=== PATIENT | female | born 1980 | race Caucasian/White ===

== ENCOUNTER 2020-04-18 08:52 | Outpatient (REF) | payer BC, SELFPAY ==
[2020-05-11 09:16] LABS: CT PCR NOT DETECTED (Not Detect.); NG PCR NOT DETECTED (Not Detect.)
== END 2020-04-18 08:53 | disposition home or self-care (01) ==
LOC: HO.LAB 08:52
PROVIDERS: PCP Internal Medicine; Referring Provider Internal Medicine; Visit Provider Advanced Practice Midwife
DX: Z01.419 Encounter for gynecological examination (general) (routine) without abnormal findings (principal); Z20.2 Contact with and (suspected) exposure to infections with a predominantly sexual mode of transmission; N84.1 Polyp of cervix uteri
CPT/HCPCS: 87491; 87591

== ENCOUNTER 2020-06-18 11:53 | Outpatient (REF) | payer BC, SELFPAY ==
--- NOTE | ~2020-06-18 | US_ITS ---
EXAMINATION: US VENOUS ULTRASOUND WITH DOPPLER LOWER EXTREMITY, LEFT CLINICAL INFORMATION: Left leg swelling and phlebitis COMPARISON: None TECHNIQUE: Ultrasound of the deep veins is performed from the hip to the calf with compression sonography and color and pulse Doppler assessment. Spectral analysis with color-flow imaging is performed. FINDINGS: There is normal venous compression and respiratory variation and augmented flow of the deep veins of the left lower extremity. The visualized common femoral vein, superficial femoral vein, profunda femoral vein, popliteal vein, and the trifurcation region shows no evidence of deep venous thrombosis. There is evidence of superficial thrombophlebitis in the superior medial calf. There is edema of the soft tissues of the calf. The contralateral right common femoral vein is patent. There is no significant popliteal fossa cyst. US/US venous duplex LE LT IMPRESSION: No DVT demonstrated in the left lower extremity. Superficial thrombophlebitis in the calf.
[2020-06-18 13:41] LABS: MANUAL DIFF FLAG NO
[2020-06-18 13:44] LABS: Basophils Percent Auto 0.2 % (0-2); Eosinophils Absolute Auto 0.1 X10*3/uL (0.0-0.4); Eosinophils Percent Auto 1.8 % (0-4); Hematocrit 38.8 % (37-47); Hemoglobin 12.7 g/dl (12.0-16.0); Imm Gran Abs Auto 0.01 X10*3/uL (0.00-0.03); Imm Gran Pct Auto 0.2 % (0.0-0.4); Lymphocytes Absolute Auto 1.4 X10*3/uL (1.2-4.9); Lymphocytes Percent Auto 27.4 % (20-40); Mean Corpuscular HGB Conc 32.7 g/dl (31.0-35.0); Mean Corpuscular Hemoglobin 29.5 pg (27.0-33.0); Mean Corpuscular Volume 90.2 fL (80-98); Mean Platelet Volume 11.4 fL (9.4-12.3); Monocytes Absolute Auto 0.4 X10*3/uL (0.1-1.2); Monocytes Percent Auto 6.9 % (2-11); Neutrophils Absolute Auto 3.2 X10*3/uL (2.0-8.3); Neutrophils Percent Auto 63.5 % (45-73); Platelet Count 219 X10*3/uL (160-400); Red Cell Distribution Width 11.9 % (11.0-16.0)
[2020-06-18 14:09] LABS: Anion Gap 11 (12-20); Blood Urea Nitrogen 13 mg/dL (9-16); C Reactive Protein 0.76 mg/dL (< or = 0.50); Calcium 8.9 mg/dL (8.4-10.2); Carbon Dioxide 26 mmol/L (22-29); Chloride 104 mmol/L (96-108); Cholesterol 169 mg/dL; Estimated Glomerular Filt Rate > 60; Glucose Random 96 mg/dL (60-115); Sodium 137 mmol/L (135-145)
== END 2020-06-18 11:54 | disposition home or self-care (01) ==
LOC: HO.US 11:53
PROVIDERS: PCP Internal Medicine; Visit Provider Internal Medicine
DX: Z00.00 Encounter for general adult medical examination without abnormal findings (principal); I80.3 Phlebitis and thrombophlebitis of lower extremities, unspecified
CPT/HCPCS: 36415; 80048; 82465; 85025; 86140; 93971

== ENCOUNTER 2021-05-20 09:48 | Outpatient (REF) | payer BC, SELFPAY ==
[2021-05-22 13:37] LABS: HPV mRNA E6/E7 rflx Not Detected (Not Detected)
== END 2021-05-20 09:49 | disposition home or self-care (01) ==
LOC: HO.LAB 09:48
PROVIDERS: PCP Internal Medicine; Visit Provider Obstetrics & Gynecology
DX: Z01.419 Encounter for gynecological examination (general) (routine) without abnormal findings (principal); Z11.51 Encounter for screening for human papillomavirus (HPV)
CPT/HCPCS: 87624; 88142

== ENCOUNTER 2021-06-09 10:49 | Outpatient (REF) | payer BC, SELFPAY | END 2021-06-09 10:50 | disposition home or self-care (01) | LOC: HO.LAB 10:49 | PROVIDERS: PCP Internal Medicine; Visit Provider Obstetrics & Gynecology | DX: R87.610 Atypical squamous cells of undetermined significance on cytologic smear of cervix (ASC-US) (principal) | CPT/HCPCS: 57454; 88305 ==

== ENCOUNTER → 2021-06-23 15:13 | Outpatient (BNVA) | payer BC, SELFPAY | PROVIDERS: PCP Internal Medicine; Visit Provider Obstetrics & Gynecology ==

== ENCOUNTER 2021-06-24 15:08 | Outpatient (REF) | payer BC, SELFPAY ==
--- NOTE | ~2021-06-24 | MM_ITS ---
EXAMINATION: MM SCREENING DIGITAL BREAST TOMOSYNTHESIS, BILATERAL CLINICAL INFORMATION: Screening. Asymptomatic. Age 41. No prior breast imaging. No known family history breast cancer. The lifetime risk of breast cancer based on the Tyrer-Cuzick Model is 12%. COMPARISON: None (current study represents initial baseline exam). TECHNIQUE: Digital breast tomosynthesis is performed in both the craniocaudal and mediolateral oblique views along with computer-aided detection (CAD). Synthesized 2D images are generated from the tomosynthesis. FINDINGS: There are scattered areas of fibroglandular density (ACR BI-RADS breast composition Category b). There are no significant masses, abnormal calcifications, or other abnormalities. No architectural abnormality. The skin contours are smooth. MM/MM tomosynthesis screening BI IMPRESSION: No mammographic evidence of malignancy. ASSESSMENT: BI-RADS 1: Negative RECOMMENDATION: Routine annual mammography screening. This patient's information was entered into a reminder system with a target due date for their next mammogram.
== END 2021-06-24 15:09 | disposition home or self-care (01) ==
LOC: HO.MAMMO 15:08
PROVIDERS: PCP Internal Medicine; Visit Provider Obstetrics & Gynecology
DX: Z12.31 Encounter for screening mammogram for malignant neoplasm of breast (principal)
CPT/HCPCS: 77063; 77067

== ENCOUNTER 2022-05-24 09:18 | Outpatient (REF) | payer OTHER, SELFPAY ==
[2022-05-28 05:13] LABS: HPV mRNA E6/E7 rflx Not Detected (Not Detected)
== END 2022-05-24 09:19 | disposition home or self-care (01) ==
LOC: HO.LNP 09:18
PROVIDERS: PCP Internal Medicine; Visit Provider Obstetrics & Gynecology
DX: Z01.419 Encounter for gynecological examination (general) (routine) without abnormal findings (principal); Z11.51 Encounter for screening for human papillomavirus (HPV)
CPT/HCPCS: 87624; 88142

== ENCOUNTER 2022-06-28 15:19 | Outpatient (REF) | payer OTHER, SELFPAY ==
--- NOTE | ~2022-06-28 | MM_ITS ---
EXAMINATION: MM SCREENING DIGITAL BREAST TOMOSYNTHESIS, BILATERAL CLINICAL INFORMATION: Screening. Asymptomatic. The lifetime risk of breast cancer based on the Tyrer-Cuzick Model is 12.1%. COMPARISON: Mammography: June 24, 2021 TECHNIQUE: Digital breast tomosynthesis is performed in both the craniocaudal and mediolateral oblique views along with computer-aided detection (CAD). Synthesized 2D images are generated from the tomosynthesis. FINDINGS: The breasts are heterogeneously dense, which may obscure small masses (ACR BI-RADS breast composition Category c). There are no significant masses, abnormal calcifications, or other abnormalities. MM/MM tomosynthesis screening BI IMPRESSION: No significant changes ASSESSMENT: BI-RADS 1: Negative RECOMMENDATION: Routine annual mammography screening. This patient's information was entered into a reminder system with a target due date for their next mammogram.
== END 2022-06-28 15:20 | disposition home or self-care (01) ==
LOC: HO.MAMMO 15:19
PROVIDERS: PCP Internal Medicine; Visit Provider Obstetrics & Gynecology
DX: Z12.31 Encounter for screening mammogram for malignant neoplasm of breast (principal)
CPT/HCPCS: 77063; 77067

== ENCOUNTER 2023-01-21 12:08 | Outpatient (REF) | payer OTHER, SELFPAY ==
[2023-01-21 13:21] LABS: MANUAL DIFF FLAG NO
[2023-01-21 13:33] LABS: Basophils Percent Auto 0.4 % (0-2); Eosinophils Absolute Auto 0.2 X10*3/uL (0.0-0.4); Eosinophils Percent Auto 3.7 % (0-4); Hematocrit 38.9 % (37.0-47.0); Hemoglobin 12.8 g/dl (12.0-16.0); Imm Gran Abs Auto 0.01 X10*3/uL (0.00-0.03); Imm Gran Pct Auto 0.2 % (0.0-0.4); Lymphocytes Absolute Auto 1.2 X10*3/uL (1.2-4.9); Lymphocytes Percent Auto 26.9 % (20-40); Mean Corpuscular HGB Conc 32.9 g/dl (31.0-35.0); Mean Corpuscular Hemoglobin 30.5 pg (27.0-33.0); Mean Corpuscular Volume 92.8 fL (80.0-98.0); Monocytes Absolute Auto 0.4 X10*3/uL (0.1-1.2); Monocytes Percent Auto 9.2 % (2-11); Neutrophils Absolute Auto 2.7 x10*3/uL (2.0-8.3); Neutrophils Percent Auto 59.6 % (45-73); Platelet Count 179 X10*3/uL (160-400); Red Blood Count 4.19 X10*6/uL (4.20-5.50); Red Cell Distribution Width 11.9 % (11.0-16.0); White Blood Count 4.6 X10*3/uL (4.8-10.8)
[2023-01-21 14:15] LABS: Anion Gap 13 (12-20); Blood Urea Nitrogen 11 mg/dL (9-16); Calcium 8.8 mg/dL (8.4-10.2); Carbon Dioxide 22 mmol/L (22-29); Chloride 108 mmol/L (96-108); Cholesterol 175 mg/dL (<200); Estimated Glomerular Filt Rate > 60; Glucose Random 85 mg/dL (60-115); Potassium 4.1 mmol/L (3.3-5.1); Sodium 139 mmol/L (135-145)
== END 2023-01-21 12:09 | disposition home or self-care (01) ==
LOC: HO.10HDL 12:08
PROVIDERS: Visit Provider Internal Medicine
DX: Z00.00 Encounter for general adult medical examination without abnormal findings (principal); J06.9 Acute upper respiratory infection, unspecified; I83.90 Asymptomatic varicose veins of unspecified lower extremity
CPT/HCPCS: 36415; 80048; 82465; 85025

== ENCOUNTER 2023-06-29 15:33 | Outpatient (REF) | payer OTHER, SELFPAY | END 2023-06-29 15:34 | disposition home or self-care (01) | LOC: HO.MAMMO 15:33 | PROVIDERS: PCP Internal Medicine; Visit Provider Internal Medicine | DX: Z12.31 Encounter for screening mammogram for malignant neoplasm of breast (principal) | CPT/HCPCS: 77063; 77067 ==

== ENCOUNTER → 2023-06-29 15:45 | Outpatient (BNV) | payer OTHER, SELFPAY | PROVIDERS: PCP Internal Medicine; Visit Provider Radiology Diagnostic Radiology | DX: Z12.31 Encounter for screening mammogram for malignant neoplasm of breast (principal) | CPT/HCPCS: 77063; 77067 ==

== ENCOUNTER 2023-07-19 14:50 | Outpatient (AMB) | payer OTHER, SELFPAY ==
--- NOTE | 2023-07-19 14:54 | MHC.OFFVIS ---
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 No complaints. The patient is interested in discussing different options of control Last Pap/HPV was negative in 05/24 Last Mammogram was BI-RADS 1 in 06/25 [facility] Medical History Cervical cancer screening ASCUS of cervix with negative high risk HPV Anxiety Asthma Surgical History History of repair of ACL Social History Household Members: Spouse and Children Housing: House Alcohol intake: current Alcohol intake frequency: a few times a month Patient Tobacco Use Status: Never used Tobacco service: No Current occupational status: employed Current occupation: manager printing Sexual orientation: Straight/Heterosexual Gender identity: Female Female Reproductive History Menstrual Age of Menarche: 12 Date of last menstrual period: 07/11/23 control method: pills Total pregnancies: 3 Full term: 2 Number of Living Children: 2 Ab induced: 1 Date of last pap smear: 05/24/22 History of abnormal pap smear: Yes (Ascus) Date of Mammogram: 06/29/23 Review of Systems Const All systems reviewed & are unremarkable except as noted in HPI and below Card Reports as per HPI Resp Reports as per HPI GI Reports as per HPI and Reports no additional complaints Reports as per HPI Physical Exam Vital Signs: Last Vital Signs BP 110/68 07/19/23 14:58 BMI result Body Mass Index 26.6 Const General: cooperative, healthy appearing and comfortable Chest Chest palpation & inspection: normal inspection of the chest and normal palpation of entire chest wall Breast/axilla inspection: normal inspection of the breasts and normal inspection of the axillae Breast/axilla palpation: normal palpation of the breasts, normal palpation of the axillae and no axillary lymphadenopathy Resp Effort & Inspection: normal respiratory effort Auscultation: clear to auscultation bilaterally Percussion: percussion normal Cardio Palpation: normal PMI Rate: regular rate Rhythm: regular rhythm Heart sounds: no murmurs and no rubs Peripheral pulses: Peripheral pulses 2+ throughout GI Inspection: Yes normal to inspection Palpation (GI): Soft to palpation, nontender, no guarding, not rigid and No hepatosplenomegaly present Percussion: Yes normal to percussion Auscultation: normal bowel sounds Rectal Exam - Female: deferred General: Yes bladder normal to palpation External Female Exam: No lesion Speculum Exam - Vagina: normal appearance of the vagina, normal palpation, normal vaginal discharge and not erythematous Speculum Exam - Cervix: normal appearance of the cervix and normal palpation Bimanual exam- vagina & uterus: normal bimanual exam, normal palpation, uterine size normal, bladder normal to palpation, consistency normal and normal palpation Bimanual Exam- Adnexa, other: normal adnexae, no masses and no tenderness Assessment & Plan Assessment & Plan (1) Well woman exam with routine gynecological exam: Comment: DEVYN 1 in 2021 Code(s): Z01.419 - Encounter for gynecological examination (general) (routine) without abnormal findings Plan: Cotesting not indicated this year. Instructions given the patient to schedule next screening Mammogram in 06/26. Counseled the patient about the recommended dietary allowance of 1000 mg of Calcium & 600 IU of vitamin D. The patient was instructed to perform monthly self-breast exams and to schedule an annual exam in a year; All questions answered and the patient verbalized understanding. Instructed the patient to schedule annual exam in a year (2) Family planning: Code(s): Z30.09 - Encounter for other general counseling and advice on contraception Plan: Discussed with the patient the different options of control including control pills/Nuvaring, Depo Medroxy Progesterone Acetate, IUD ( levonorgestrel, Copper), sterilization. All the pros, cons, risks and benefits of each were discussed with the patient. The patient decided to to stay with [facility] so a more detailed discussion re: control pills including mechanism of action, benefits (regular menses, less dysmenorrhea, less risk of ovarian cancer, ...), risks ( DVT, PE, Strokes, IN, increased breast ca, others). Coding Level of Care Code Est Pt Prev Care 40-64y(49323) Diagnoses Well woman exam with routine gynecological exam Z01.419 Family planning Z30.09
[2023-07-19 14:58] VITALS: BP 110/68; BMI 26.6
== END 2023-07-19 15:21 | disposition home or self-care (01) ==
PROVIDERS: PCP Internal Medicine; Visit Provider Obstetrics & Gynecology
DX: Z01.419 Encounter for gynecological examination (general) (routine) without abnormal findings (principal); Z30.09 Encounter for other general counseling and advice on contraception
CPT/HCPCS: 99396

== ENCOUNTER → 2023-07-19 14:50 | Outpatient (BNVA) | payer OTHER, SELFPAY | PROVIDERS: PCP Internal Medicine; Visit Provider Obstetrics & Gynecology ==

== ENCOUNTER 2024-05-18 08:22 | Outpatient (REF) | payer OTHER, SELFPAY ==
--- OUTSIDE RECORDS SUMMARY | 2024-05-18 08:38 | XMS_ITS | Continuity of Care Document ---
Author Organization [facility] Address [address] [place] [address] Phone Care Team Providers Care Funeral Greeter Name Role Phone Huy SIEGEL, RVT, [place], Star Unavailable U navailable Procedures Procedure Date Duplex Scan-extrem Veins; Uni/ CT & MA M Office/Outpt E&M Established 15 Mins- CT & MA Duplex Scan-extrem Veins; Uni/ CT & MA A Inj Scleros Solut; Mx Veins 1- CT & MA M Ultrason Guidan Needle Bx-rad- CT & MA M Duplex Scan-extrem Veins; Uni/ CT & MA M Varithena, Single Truncal Vein - CT & MA Office/Outpt E&M Established 15 Mins Jun Duplex Scan-extrem Veins; Uni/ 24 Phleb Veins - Extrem - To 20 Duplex Scan-extrem Veins; Uni/ 24 Endovenous Rf, 1st Vein Offic/outpt E&m Estab 5 Min Trial - Tele medicine Duplex Scan-extrem Veins; Uni/ Office/Oupt E&M New Pt 30 Mins Advance Directives Directive Yes / No Effective Date File Name No Information Encounters Encounter Description Practice Location Reason(s) For Visit Diagnoses Date Provider Providers Copied on Encounter [facility], [address] [place] [address] Dr Romero [address]Su[address]oy [place], [id number], tel:[phone] CVR - [facility] Encounter for follow-up examination after completed treatment for conditions other than malignant neVaricose veins of left lower extremity with pain 4 Huy SIEGEL RVT, [place] Graves. [address] [place] [address], [place], [id number], [place]. tel:[phone] Referring Provider: Aram Chaves MD, [address] [place] [address] Dr Bedolla, [place], [address]. tel:[phone] Office/Outpt E&M Established 15 Mins- CT & [facility], [address] [place] [address] Dr Romero [address]SuCoy headley [place], [id number], [place] tel:[phone] [facility] Localized edemaVenous insufficiency (chronic) (peripheral) 4 Huy SIEGEL RVT, RPVI Robert. [address] [place] [address], [place], [id number], [place]. tel:[phone] Referring Provider: Aram Chaves MD, [address] [place] [address] Dr Bedolla, [place], [address]. tel:[phone] [facility], [address] [place] [address] Dr Romero [address]SuCoy headley [place], [id number], [place] tel:[phone] CVR - [facility] Encounter for follow-up examination after completed treatment for conditions other than malignant neVaricose veins of left lower extremity with pain 4 Huy SIEGEL RVT, RPVI Robert. [address] [place] [address], [place] mal[place], [id number], [place]. tel:[phone] Referring Provider: Aram Chaves MD, [address] [place] [address] Dr Bedolla, [place], [address]. tel:[phone] [facility], [address] [place] [address] Dr Romero 1000SuCoy headley [place], [id number], [place] tel:[phone] CVR - [facility] Varicose veins of left lower extremity with other complications 4 Dion Powers. [address] [place] [address], [place], [place], [id number], [place]. tel:[phone] Referring Provider: Aram Chaves MD, [address] [place] [address] Dr [address], [place], [address]. tel:[phone] [facility], [address] [place] [address] Dr Romero [address]Coy headley [place], [id number], [place] tel:[phone] CVR - [place] [facility] [place] Encounter for follow-up examination after completed treatment for conditions other than malignant nePain in left leg 4 Huy SIEGEL RVT, [place] Graves. [address] [place] [address], [id number], [place]. tel:[phone] Referring Provider: Aram Chaves MD, [address] [place] [address] [address], [place], [address]. 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 [address] [place] [address], [id number], [place]. tel:[phone] Referring Provider: Aram Chaves MD, [address] [place] [address] Dr [address], [place], [address]. tel:[phone] Office/Outpt E&M Established 15 Mins [facility], [address] [place] [address] Dr Romero [address] Oliver [place], [id number], [place] tel:[phone] CV[facility] - [place] [facility] [place] Localized edemaVaricose veins of left lower extremity with other complications 4 Huy SIEGEL RVT, [place] Graves. [address] [place], [place] [address]fiel d, [place], [id number], [place]. tel:[phone] Referring Provider: Aram Chaves MD, [address] [place] [address] Dr [address], [place], [address]. tel:[phone] [facility], [address] [place] [address] Dr Romero [address] [place], [id number], [place] tel:[phone] [facility] - [place] [facility] [place] Encounter for follow-up examination after completed treatment for conditions other than malignant nePain in left leg 4 Huy SIEGEL RVT, [place] Graves. [address] [address], [facility] [place] [place], [id number], [place]. tel:[phone] Referring Provider: Aram Chaves MD, [address] [place] [address] [address], [place], [address]. 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 [facility] [address], [place], [id number], [place]. tel:[phone] Referring Provider: NOT FOUND PCP. [facility], [address] [place] [address] Dr Romero [address] [place], [id number], [place] tel:[phone] CV[facility] - [place] [facility] [place] Encounter for follow-up examination after completed treatment for conditions other than malignant neoplasm 4 Huy SIEGEL RVT, [place] Graves. [address] [facility] [address], [facility] [place], [id number], [place]. tel:[phone] Referring Provider: NOT FOUND PCP. 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 [address] [facility], [address], [facility] [place], [id number], [place]. tel:[phone] Referring Provider: NOT FOUND PCP. Offic/outpt E&m Estab 5 Min Trial - [facility], [address] [place] [address] Dr Romero [address] 1000[place]oy [place], [id number], [place] tel:[phone] [facility] - [place] [facility] [place] Varicose veins of left lower extremity with pain Dec-0 3 Jordi SIEGEL FACS RVT [place] Chiu. [address] [facility], Suite [facility], [facility], [address], [place]. tel:[phone] Referring Provider: NOT FOUND PCP. [facility], [address] [place] [address] Dr Romero [address] 1000[place] [place], [id number], [place] tel:[phone] CV[place] - [place] [facility] [place] Encntr for f/u exam aft trtmt for cond oth than malig neoplmVaricos e veins of left lower extremities with pain Sep- 3 Jordi SIEGEL FACS T [place] Chiu. [address] [address], [facility], [address], [place]. tel:[phone] Referring Provider: Aram Chaves MD, [address] [place] [address] Dr [address], [place], [address]. tel:[phone] Office/Oupt E&M New Pt 30 Mins [facility], [address] [place] [address] Dr Romero [address] 1000[place] [place], [id number], [place] tel:[phone] CV[place] - [place] [facility] [place] Varicose veins of left lower extremities with painPain in left legLocalized edema Sep- 3 Jordi SIEGEL FACS RVT [place] Chiu. [address] [facility], [facility] [address], [place], [address], [place]. tel:[phone] Referring Provider: Aram Chaves MD, [address] [place] [address] [address], [place], [address]. tel:[phone] Family History Family Member Type Diagnosis Age At Onset No Information Payers Payer name Insurance type Covered constitution party ID Kathleen mota(sDevin Palumbo [id number] Social History Type Description Quantity Date Captured Comments Sex Female Smoking Status No Information Chief Complaint And Reason For Visit No Information Reason For Referral Reason For Referral No Information Plan Of Treatment Date Type Action Status Goal Tobacco cessation counseling completed Goal Diet education completed Goal Tobacco cessation counseling completed Goal Diet education completed Goal Tobacco cessation counseling completed Goal Diet education completed Goal Tobacco cessation counseling completed Referral Ordered: Weight management: Referral to physician timeframe: 3 Months (related to Body mass index (BMI) 28.0-28.9, adult) ordered Referral Ordered: Weight management: Referral to physician timeframe: 3 Months (related to Body mass index (BMI) 28.0-28.9, adult) ordered Referral Ordered: Weight management: Referral to physician timeframe: 3 Months (related to Body mass index (BMI) 28.0-28.9, adult) ordered Appointment Wilma Lopez BOOKED Appointment Wilma Lopez BOOKED History Of Present Illness Encounter Date Complaint History Of Prese nt Illness No Information Functional Status Date Functional Assessmen t No Information Instructions Date Instruction Additional Infor mation Pre and post instruc tions reviewed and provided Related to Localized edema Patient education booklet given Related to Localized edema Lifestyle education Related to B laila mass index (BMI) 28.0-28.9, adult Giving Encouragement to exercise Related to Body mass index (BMI) 28.0-28.9, adult Diet education Related to Body mass index (BMI) 28.0-28.9, adult Pre and post instruc tions reviewed and provided Related to Varicose veins of left lower extremity with other complications Patient education booklet given Related to Varicose veins of left lower extremity with other complications Lifestyle education Related to B laila mass index (BMI) 28.0-28.9, adult Giving Encouragement to exercise Related to Body mass index (BMI) 28.0-28.9, adult Diet education Related to Body mass index (BMI) 28.0-28.9, adult Pre and post instruc tions reviewed and provided Related to Varicose veins of left lower extremity with pain Patient education booklet given Related to Varicose veins of left lower extremity with pain Lifestyle education Related to B laila mass index (BMI) 28.0-28.9, adult Giving Encouragement to exercise Related to Body mass index (BMI) 28.0-28.9, adult Diet education Related to Body mass index (BMI) 28.0-28.9, adult Pre and post instruc tions reviewed and provided Related to Varicose veins of left lower extremities with pain Patient education booklet given Related to Varicose veins of left lower extremities with pain Assessments Type Assessment Date No Information Patient Care Teams Name Effective Dates (start - stop) Status Members No Information
[2024-05-18 10:32] LABS: MANUAL DIFF FLAG NO
[2024-05-18 10:44] LABS: Basophils Percent Auto 0.3 % (0-2); Eosinophils Absolute Auto 0.1 X10*3/uL (0.0-0.4); Eosinophils Percent Auto 2.1 % (0-4); Hematocrit 38.5 % (37.0-47.0); Hemoglobin 12.8 g/dl (12.0-16.0); Imm Gran Abs Auto 0.01 X10*3/uL (0.00-0.03); Imm Gran Pct Auto 0.2 % (0.0-0.4); Lymphocytes Absolute Auto 1.6 X10*3/uL (1.2-4.9); Lymphocytes Percent Auto 24.5 % (20-40); Mean Corpuscular HGB Conc 33.2 g/dl (31.0-35.0); Mean Corpuscular Hemoglobin 30.5 pg (27.0-33.0); Mean Corpuscular Volume 91.7 fL (80.0-98.0); Mean Platelet Volume 10.9 fL (9.4-12.3); Monocytes Absolute Auto 0.5 X10*3/uL (0.1-1.2); Monocytes Percent Auto 6.8 % (2-11); Neutrophils Absolute Auto 4.4 x10*3/uL (2.0-8.3); Neutrophils Percent Auto 66.1 % (45-73); Platelet Count 175 X10*3/uL (160-400); Red Cell Distribution Width 12.1 % (11.0-16.0); White Blood Count 6.6 X10*3/uL (4.8-10.8)
[2024-05-18 11:06] LABS: Alanine Aminotransferase 12 U/L (0-31); Albumin Level 4.1 g/dL (3.5-5.0); Alkaline Phosphatase 56 U/L (39-117); Anion Gap 8 (12-20); Aspartate Amino Transferase 19 U/L (5-31); Bilirubin Total 0.6 mg/dL (0.0-1.0); Blood Urea Nitrogen 12 mg/dL (9-16); Calcium 8.4 mg/dL (8.4-10.2); Carbon Dioxide 26 mmol/L (22-29); Chloride 110 mmol/L (96-108); Cholesterol 174 mg/dL (<200); Estimated Glomerular Filt Rate > 60; Glucose Fasting 97 mg/dL (60-99); HDL Cholesterol 70 mg/dL (>40); LDL Cholesterol Calculated 68 mg/dL (<100); Potassium 3.9 mmol/L (3.3-5.1); Sodium 140 mmol/L (135-145); Total Protein 6.9 g/dL (6.5-8.0); Triglycerides 181 mg/dL (<150)
== END 2024-05-18 08:23 | disposition home or self-care (01) ==
LOC: HO.10HDL 08:22
PROVIDERS: Visit Provider Internal Medicine
DX: E78.00 Pure hypercholesterolemia, unspecified (principal); I83.90 Asymptomatic varicose veins of unspecified lower extremity
CPT/HCPCS: 36415; 80053; 80061; 85025

== ENCOUNTER 2024-07-04 15:38 | Outpatient (REF) | payer OTHER, SELFPAY | END 2024-07-04 15:39 | disposition home or self-care (01) | LOC: HO.MAMMO 15:38 | PROVIDERS: PCP Internal Medicine; Visit Provider Internal Medicine | DX: Z12.31 Encounter for screening mammogram for malignant neoplasm of breast (principal) | CPT/HCPCS: 77063; 77067 ==

== ENCOUNTER → 2024-07-04 15:45 | Outpatient (BNV) | payer OTHER, SELFPAY | PROVIDERS: PCP Internal Medicine; Visit Provider Internal Medicine | DX: Z12.31 Encounter for screening mammogram for malignant neoplasm of breast (principal) | CPT/HCPCS: 77063; 77067 ==

== ENCOUNTER 2025-04-10 08:49 | Outpatient (REF) | payer BC, SELFPAY ==
[2025-04-10 10:32] LABS: Hematocrit 39.4 % (37.0-47.0); Hemoglobin 13.2 g/dl (12.0-16.0); Mean Corpuscular HGB Conc 33.5 g/dl (31.0-35.0); Mean Corpuscular Hemoglobin 30.4 pg (27.0-33.0); Mean Corpuscular Volume 90.8 fL (80.0-98.0); NRBC Abs Auto 0.000 X10*3/uL (0.0-0.012); NRBC Pct Auto 0.0 /100WBC (0.0-0.2); Platelet Count 246 X10*3/uL (160-400); Red Blood Count 4.34 X10*6/uL (4.20-5.50); White Blood Count 6.2 X10*3/uL (4.8-10.8)
== END 2025-04-10 08:50 | disposition home or self-care (01) ==
LOC: HO.LAB 08:49
PROVIDERS: PCP Internal Medicine; Visit Provider Obstetrics & Gynecology
DX: Z01.419 Encounter for gynecological examination (general) (routine) without abnormal findings (principal); N93.9 Abnormal uterine and vaginal bleeding, unspecified; Z13.29 Encounter for screening for other suspected endocrine disorder; Z32.00 Encounter for pregnancy test, result unknown; Z12.31 Encounter for screening mammogram for malignant neoplasm of breast
CPT/HCPCS: 36415; 84443; 84702; 85027

== ENCOUNTER 2025-04-10 08:49 | Outpatient (AMB) | payer BC, SELFPAY ==
--- NOTE | 2025-04-10 08:55 | MHC.OFFVIS ---
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 Complaining of heavy menstrual cycles associated with passage of blood clots Last Pap/HPV was negative in 05/24, preceded by DEVYN 1 in 05/23 Last Mammogram was BI-RADS 1 in 07/24 [facility] Medical History Cervical cancer screening ASCUS of cervix with negative high risk HPV Anxiety Asthma Surgical History History of repair of ACL Social History Household Members: Spouse and Children Housing: House Alcohol intake: current Alcohol intake frequency: a few times a month Patient Tobacco Use Status: Never used Tobacco service: No Current occupational status: employed Current occupation: manager of quality Sexual orientation: Straight/Heterosexual Gender identity: Female Female Reproductive History Menstrual Age of Menarche: 12 Date of last menstrual period: 03/28/25 control method: none Total pregnancies: 3 Full term: 2 Number of Living Children: 2 Ab induced: 1 Date of last pap smear: 05/24/22 Date of Mammogram: 07/04/24 Review of Systems Const All systems reviewed & are unremarkable except as noted in HPI and below Card Reports as per HPI Resp Reports as per HPI GI Reports as per HPI and Reports no additional complaints Reports as per HPI Physical Exam Vital Signs: BMI result Body Mass Index 25.0 Const General: cooperative, healthy appearing and comfortable Chest Chest palpation & inspection: normal inspection of the chest and normal palpation of entire chest wall Breast/axilla inspection: normal inspection of the breasts and normal inspection of the axillae Breast/axilla palpation: normal palpation of the breasts, normal palpation of the axillae and no axillary lymphadenopathy Resp Effort & Inspection: normal respiratory effort Auscultation: clear to auscultation bilaterally Percussion: percussion normal Cardio Palpation: normal PMI Rate: regular rate Rhythm: regular rhythm Heart sounds: no murmurs and no rubs Peripheral pulses: Peripheral pulses 2+ throughout GI Inspection: Yes normal to inspection Palpation (GI): Soft to palpation, nontender, no guarding, not rigid and No hepatosplenomegaly present Percussion: Yes normal to percussion Auscultation: normal bowel sounds Rectal Exam - Female: deferred General: Yes bladder normal to palpation External Female Exam: No lesion Speculum Exam - Vagina: normal appearance of the vagina, normal palpation, normal vaginal discharge and not erythematous Speculum Exam - Cervix: normal appearance of the cervix and normal palpation Bimanual exam- vagina & uterus: normal bimanual exam, normal palpation, uterine size normal, bladder normal to palpation, consistency normal and normal palpation Bimanual Exam- Adnexa, other: normal adnexae, no masses and no tenderness Assessment & Plan Assessment & Plan (1) Well woman exam with routine gynecological exam: Comment: DEVYN 1 in 2021 Normal Co testing in 05/24 Code(s): Z01.419 - Encounter for gynecological examination (general) (routine) without abnormal findings Category: Medical Plan: Cotesting done. Mammogram ordered. Counseled the patient about the recommended dietary allowance of 1000 mg of Calcium & 600 IU of vitamin D. The patient was instructed to perform monthly self-breast exams and to schedule an annual exam in a year; All questions answered and the patient verbalized understanding. Instructed the patient to schedule annual exam in a year (2) Abnormal uterine bleeding (AUB): Code(s): N93.9 - Abnormal uterine and vaginal bleeding, unspecified Category: Medical Plan: Co testing done, GC and chlamydia taken CBC, TSH, HCG, and pelvic ultrasound ordered. Discussed with the patient the different causes of abnormal bleeding including thyroid disorders, uterine and ovarian pathology, endometrial hyperplasia, carcinoma and other potential causes. Discussed with the patient the work up including CBC (to r/o anemia), TSH, pelvic Ultrasound, endometrial biopsy to r/o endometrial pathology. All questions answered and the patient verbalized understanding. Instructed the patient to schedule an appointment for an endometrial biopsy in 2 weeks. Orders: Orders MM tomosynthesis screening BI [facility] Z12.31 - Encounter for screening mammogram for malignant neoplasm of breast TSH reflex Free T4 Today N93.9 - Abnormal uterine and vaginal bleeding, unspecified US pelvic and transvaginal Today N93.9 - Abnormal uterine and vaginal bleeding, unspecified Complete Blood Count no Diff Today N93.9 - Abnormal uterine and vaginal bleeding, unspecified HCG Quantitative Today N93.9 - Abnormal uterine and vaginal bleeding, unspecified Coding Level of Care Code Est Pt Level 3 (00453) Est Pt Prev Care 40-64y(73248) Diagnoses Well woman exam with routine gynecological exam Z01.419 Abnormal uterine bleeding (AUB) N93.9
[2025-04-10 08:58] VITALS: BP 126/74; BMI 25.0
== END 2025-04-10 09:18 | disposition home or self-care (01) ==
LOC: HO.HWS 08:49
PROVIDERS: PCP Internal Medicine; Visit Provider Obstetrics & Gynecology
DX: Z01.419 Encounter for gynecological examination (general) (routine) without abnormal findings (principal); N93.9 Abnormal uterine and vaginal bleeding, unspecified
CPT/HCPCS: 99213; 99396; 99459

== ENCOUNTER 2025-04-10 10:23 | Outpatient (REF) | payer BC, SELFPAY ==
[2025-04-10 23:23] LABS: CT PCR NOT DETECTED (Not Detect.); NG PCR NOT DETECTED (Not Detect.)
== END 2025-04-10 10:24 | disposition home or self-care (01) ==
LOC: HO.LNP 10:23
PROVIDERS: Visit Provider Obstetrics & Gynecology
DX: Z01.419 Encounter for gynecological examination (general) (routine) without abnormal findings (principal); N93.9 Abnormal uterine and vaginal bleeding, unspecified; Z20.2 Contact with and (suspected) exposure to infections with a predominantly sexual mode of transmission
CPT/HCPCS: 87491; 87591; 87626; 88175